=== PATIENT | female | born 1945 | race Caucasian/White ===

== ENCOUNTER → 2024-05-10 | Outpatient (CLI) | payer OTHER, SELFPAY ==
[2024-05-10 10:52] LABS: Basophils % (Auto) 1 % (0-2.5); Eosinophils # (Auto) 0.3 Thou/mm3 (0.0-0.5); Eosinophils % (Auto) 7 % (0-10); Hematocrit 38.5 % (36.0-46.0); Immature Granulocytes % (Auto) 0 % (0-0); Immature Granulocytes Auto 0.01 Thou/mm3 (0.00-0.00); Lymphocytes # (Auto) 1.2 Thou/mm3 (1.0-4.8); Lymphocytes % (Auto) 26 % (10-50); Mean Corpuscular HGB Conc 31.2 g/dl (31.0-37.0); Mean Corpuscular Hemoglobin 27.5 pg (25.0-35.0); Mean Corpuscular Volume 88 fL (80-100); Monocytes # (Auto) 0.3 Thou/mm3 (0.0-0.8); Monocytes % (Auto) 7 % (0-12); Neutrophils # (Auto) 2.8 Thou/mm3 (1.8-7.7); Neutrophils % (Auto) 59 % (37-80); Nucleated Red Blood Cell % 0 /100 WBC (0); Platelet Count 197 Thou/mm3 (140-440); RDW Standard Deviation 49.3 fL (36.4-46.3); Red Blood Count 4.37 Miln/mm3 (4.00-5.20); White Blood Count 4.7 Thou/mm3 (3.6-11.0)
[2024-05-10 11:21] LABS: Alanine Aminotransferase 12 U/L (10-49); Albumin, Serum 3.6 gm/dL (3.4-4.8); Albumin/Globulin Ratio 1.2 (1.2-2.2); Alkaline Phosphatase 145 U/L (46-116); Anion Gap 8 (7-16); Aspartate Amino Transferase 15 U/L (0-34); BUN/Creatinine Ratio 24 Ratio (12-20); Bilirubin,Total 0.3 mg/dL (0.3-1.2); Blood Urea Nitrogen 19 mg/dL (9-23); Calcium 9.6 mg/dL (8.3-10.6); Calcium (Corrected) 9.9 mg/dL (8.5-10.1); Carbon Dioxide 27.5 mMol/L (20.0-31.0); Chloride 111 mMol/L (98-107); Creatinine (Component) 0.8 mg/dL (0.6-1.3); Globulin 3.1 gm/dL (2.3-3.5); Glucose 94 mg/dL (74-106); Osmolality,Calculated 292 (275-295); Potassium 4.1 mMol/L (3.4-5.1); Sodium 146 mMol/L (136-145); Thyroid Stimulating Hormone 0.27 uIU/mL (0.55-4.78); Total Protein 6.7 gm/dL (5.7-8.2); eGFR > 60 See Note
[2024-05-10 11:38] LABS: Cardiac Risk Estimate 4.1 RATIO (3.7-5.6); Cholesterol 174 mg/dL (132-200); HDL Cholesterol 42 mg/dL (40-60); LDL Cholesterol,Calculated 118 mg/dL (0-130); Triglycerides 68 mg/dL (30-150)
== END | disposition home or self-care (01) ==
PROVIDERS: PCP Family Medicine; Referring Provider Family Medicine; Visit Provider Family Medicine
DX: I10 Essential (primary) hypertension (principal)
CPT/HCPCS: 36415; 80053; 80061; 81001; 84443; 85025

== ENCOUNTER → 2024-05-11 | Outpatient (CLI) | payer OTHER, SELFPAY ==
[2024-05-11 13:05] LABS: Collection Type, Urine Clean Catch
[2024-05-11 14:26] LABS: Bacteria,Urine 3+; Bilirubin,Urine Negative (Negative); Blood,Urine Trace (Negative); Calcium Oxalate Crystals,Urine 2+; Color,Urine Yellow (Lt Yel-Yel); Glucose, Urine Negative (Negative); Ketones,Urine Negative (Negative); Leukocyte Esterase,Urine Positive (Negative); Nitrite,Urine Negative (Negative); Protein,Urine Trace (Neg - Trace); RBC,Urine 20 /hpf (0-3); Specific Gravity,Urine 1.019 (1.001-1.035); Squamous Epithelial Cell,Urine 1 /hpf (0-5); Urobilinogen,Urine Negative mg/dL (0.0-1.0); WBC,Urine 856 /hpf (0-5)
[2024-05-11 14:35] LABS: Clarity,Urine Cloudy (Clear/Hazy); Culture Indicated,Urine Yes
== END | disposition home or self-care (01) ==
LOC: SLDO 12:40
PROVIDERS: PCP Family Medicine; Referring Provider Family Medicine; Visit Provider Family Medicine
DX: I10 Essential (primary) hypertension (principal)
CPT/HCPCS: 81001; 87077; 87086; 87186

== ENCOUNTER 2024-05-28 13:07 | Outpatient (RCR) | payer OTHER, SELFPAY ==
--- NOTE | 2024-05-28 13:46 | CTCFLWUP_ITS ---
[facility] [address] [place], [place] [address] FOLLOW-UP NOTE Date: 05/28/2024 MR#: [id number] Name: FABIO SCHUSTER : 1945 Dx: C34.31 Malignant neoplasm of lower lobe, right bronchus or lung Identification. Patient with invasive adenocarcinoma right lower lung diagnosed 02/18/2023. 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 Received 5000 cGy in 5 fractions via SBRT completed approximately a year ago 07/05/2023. Posttreatment PET 11-[address] 12/06/2023 suggested growing mass. Biopsy 12/29/2023 was negative for any malignancy recurrence. Patient reportedly spent several days in March at [facility] with respiratory symptoms. Was told that CT was clear of any suspicious malignancy. This is not available to me today. As I examine her today patient appears to be wheezy throughout chest and using bronchodilators. Also on Eliquis for her history of pulmonary embolism. I shall order CT scan chest abdomen with standard blood tests and see her back in 2 months. Electronically signed by: Ancelmo Demarco M.D. 05/28/2024 1:44 PM
== END 2024-06-22 23:59 | disposition home or self-care (01) ==
LOC: SCTC 13:07
PROVIDERS: PCP Family Medicine; Referring Provider Family Medicine; Visit Provider Radiology Therapeutic Radiology
DX: C34.31 Malignant neoplasm of lower lobe, right bronchus or lung (principal); R06.2 Wheezing; Z86.711 Personal history of pulmonary embolism; Z92.3 Personal history of irradiation; Z79.01 Long term (current) use of anticoagulants
CPT/HCPCS: 99213; G0463

== ENCOUNTER 2024-07-19 12:36 | Emergency (ER) | payer OTHER, SELFPAY ==
[2024-07-19 12:50] VITALS: BP 145/74; PULSE 91; RESP 18; TEMP 36.8; O2SAT 99; BMI 29.2
--- NOTE | 2024-07-19 12:56 | XR_ITS ---
Examination: AP chest single view Technique one AP upright portable chest single view Exam date and time: July 19, 2024 1313 hours Comparison 01/03/2024 INDICATIONS: Shortness of breath chest pain today, diagnosis lung cancer FINDINGS: Large right pleural effusion Normal heart size Left lung clear Significant osteopenia IMPRESSION: Large right pleural effusion
--- NOTE | 2024-07-19 12:57 | PD.EDRME ---
Rapid Medical Screening Exam RME Arrival date/time: 07/19/24 12:36 78-year-old female with cancer presents today stating that she was called to return to the ER for further evaluation for a pleural effusion on her CT scan Chief Complaint: General Adult/Misc Complain Vital signs: Vital Signs Temperature 98.2 F 07/19/24 12:50 Pulse Rate 91 07/19/24 12:50 Respiratory Rate 18 07/19/24 12:50 Blood Pressure 145/74 H 07/19/24 12:50 Pulse Oximetry (%) 99 07/19/24 12:50 Oxygen Delivery Method Room Air 07/19/24 12:50
[2024-07-19 13:44] LABS: Basophils % (Auto) 0 % (0-2.5); Eosinophils # (Auto) 0.2 Thou/mm3 (0.0-0.5); Eosinophils % (Auto) 2 % (0-10); Hematocrit 30.5 % (36.0-46.0); Hemoglobin 9.8 g/dL (12.0-16.0); Immature Granulocytes % (Auto) 0 % (0-0); Immature Granulocytes Auto 0.03 Thou/mm3 (0.00-0.00); Lymphocytes % (Auto) 14 % (10-50); Mean Corpuscular HGB Conc 32.1 g/dl (31.0-37.0); Mean Corpuscular Hemoglobin 26.9 pg (25.0-35.0); Mean Corpuscular Volume 84 fL (80-100); Monocytes # (Auto) 0.4 Thou/mm3 (0.0-0.8); Monocytes % (Auto) 5 % (0-12); Neutrophils # (Auto) 5.8 Thou/mm3 (1.8-7.7); Neutrophils % (Auto) 78 % (37-80); Nucleated Red Blood Cell % 0 /100 WBC (0); Platelet Count 286 Thou/mm3 (140-440); RDW Standard Deviation 38.9 fL (36.4-46.3); Red Blood Count 3.64 Miln/mm3 (4.00-5.20); White Blood Count 7.4 Thou/mm3 (3.6-11.0)
[2024-07-19 13:59] LABS: INR 1.1 (0.9-1.3); Partial Thromboplastin Time 29.5 Seconds (22.0-36.0); Prothrombin Time 12.4 Seconds (9.0-12.2)
[2024-07-19 14:16] LABS: Alanine Aminotransferase 12 U/L (10-49); Albumin, Serum 3.4 gm/dL (3.4-4.8); Alkaline Phosphatase 115 U/L (46-116); Anion Gap 10 (7-16); Aspartate Amino Transferase 11 U/L (0-34); BUN/Creatinine Ratio 20 Ratio (12-20); Bilirubin,Total 0.3 mg/dL (0.3-1.2); Blood Urea Nitrogen 10 mg/dL (9-23); Calcium 9.6 mg/dL (8.3-10.6); Calcium (Corrected) 10.1 mg/dL (8.5-10.1); Carbon Dioxide 21.8 mMol/L (20.0-31.0); Chloride 102 mMol/L (98-107); Creatinine (Component) 0.5 mg/dL (0.6-1.3); Estimated Creatinine Clearance 79.8 mL/min (>60); Globulin 3.5 gm/dL (2.3-3.5); Glucose 92 mg/dL (74-106); Osmolality,Calculated 267 (275-295); Potassium 3.8 mMol/L (3.4-5.1); Sodium 134 mMol/L (136-145); Total Protein 6.9 gm/dL (5.7-8.2); eGFR > 60 See Note
--- NOTE | 2024-07-19 17:47 | PD.EDADULT ---
ED General RME/HPI General Chief complaint: General Adult/Misc Complain Stated complaint: PLEURAL EFFUSION (SENT FROM DR. TORRES) Time Seen by Provider: 07/19/24 17:46 Arrival date/time: 07/19/24 12:36 RME / HPI RME / HPI narrative: 78-year-old female with cancer presents today stating that she was called to return to the ER for further evaluation for a pleural effusion on her CT scan. Patient currently is denying any shortness of breath denies any chest pain denies any other complaints except for generalized body weakness. Denies any fever also. She is currently not on chemotherapy. Related Data Home Medications ?Medication ?Instructions ?Recorded ?Confirmed lisinopril 20 mg tablet 20 mg PO BID 90 days ##0 04/01/14 12/29/23 amlodipine 5 mg tablet 5 mg PO QDAY 07/09/18 12/29/23 amitriptyline 25 mg tablet 25 mg PO HS 12/31/22 12/29/23 atorvastatin 20 mg tablet 20 mg PO HS 12/31/22 12/29/23 calcium carb-ergocalciferol (vit 1 tab PO QDAY 12/31/22 12/29/23 D2) 600 mg calcium-200 unit tablet methimazole 5 mg tablet 5 mg PO QDAY 12/31/22 12/29/23 propranolol 40 mg tablet 40 mg PO BID 12/31/22 12/29/23 alendronate 70 mg tablet 70 mg PO QWEEK 02/15/23 12/29/23 fluoxetine 40 mg capsule 40 mg PO QAM 02/15/23 12/29/23 hydrochlorothiazide 25 mg tablet 25 mg PO QDAY 02/15/23 12/29/23 Previous Rx's ?Medication ?Instructions ?Recorded apixaban 5 mg (74 tabs) tablets in 5 mg PO BID #74 tabs 02/19/23 a dose pack (Eliquis DVT-PE Treat 30D Start) Held on 12/29/23. Instructions: Resume on 12/31/23. HOLD Eliquis, resume Tuesday12/31/2023 donepezil 5 mg tablet 5 mg PO QDAY #30 tabs 02/19/23 Allergies Allergy/AdvReac Type Severity Reaction Status Date / Time codeine Allergy Severe Fainting Verified 07/19/24 12:40 hydrocodone Allergy Severe Itching Verified 07/19/24 12:40 melon Allergy Severe Hives Verified 07/19/24 12:40 meperidine Allergy Severe Fainting Verified 07/19/24 12:40 Penicillins Allergy Severe Rash Verified 07/19/24 12:40 Review of Systems Review of Systems Narrative Review of Systems: Review of system reviewed and within normal limits except mentioned in HPI ED Exam Narrative Physical exam: VITAL SIGNS: Reviewed. GENERAL APPEARANCE: Alert and interactive, follows commands, no acute distress, HEAD AND FACE: Non-traumatic. ENT: PERRL, pink conjunctivitis, eyelid no trauma, Mucous membrane moist. NECK: Supple, nontender, no nuchal rigidity. CHEST: No tenderness, no crepitus, no paradoxical movement, no retractions. LUNGS: Clear, well ventilated, symmetric, no rales, no wheezing, no ronchi, no stridor, good breath sounds bilaterally. HEART: Regular rate, regular rhythm, no murmur, no gallops. ABDOMEN: Soft, positive bowel sounds, nondistended, no guarding, nontender, no rebound, no masses, RECTAL: Deferred. GENITAL: Deferred. NEUROLOGICAL: Gross motor function intact sensory function intact, Appropriate for age. MUSCULOSKELETAL: low back nontender, full range of motion. EXTREMITIES: Nontender, full range of motion. SKIN: Color pink, dry, no rash, no lacerations, no abrasions, no contusions. LYMPHATICS: Deferred. Course Quality Measures none Orders Category Date Time Status XR chest 2V Stat Exams 07/19/24 12:56 Completed CBC Stat Lab 07/19/24 13:34 Completed Comprehensive Metabolic Panel Stat Lab 07/19/24 13:34 Completed Partial Thromboplastin Time Stat Lab 07/19/24 13:34 Completed Prothrombin Time with INR Stat Lab 07/19/24 13:34 Completed Vital Signs Vital signs: Vital Signs Temperature 98.2 F 07/19/24 12:50 Pulse Rate 91 07/19/24 12:50 Respiratory Rate 18 07/19/24 12:50 Blood Pressure 145/74 H 07/19/24 12:50 Pulse Oximetry (%) 99 07/19/24 12:50 Oxygen Delivery Method Room Air 07/19/24 12:50 [facility] Patient data External records reviewed:: None Clinical information provided by:: family Social determinants that could affect healthcare access:: none Patient has the following chronic illnesses:: History of cancer currently not on chemo How is presenting disease/condition affected by chronic disease/condition?: exacerbated by Evaluation data The following diagnostics were reviewed and interpreted by me:: lab results and radiology exam(s) Lab and/or radiology exams considered but not ordered:: None Interpretation Summary: See results in MDM Medications Medications considered but not ordered:: None Medication administrations:: None none Consultations Consultation(s) initiated? (list below): No Diagnosis Differential Diagnosis ED Complaint MDM: Pleural effusion, history of cancer Most likely diagnosis given after review of the tests above:: Pleural effusion needing outpatient thoracentesis Admission Indicated Admission indicated?: not indicated Explain why admission is indicated or not indicated:: Stable Admission Request Was there a request for admission?: No Disposition Plan Disposition Plan: Discharge Discharge Attestation Discharge Attestation: The patient and all family members were given an opportunity to ask questions and understood the discharge instructions. Discharge instructions specifically effects, indications for sooner follow up or return to the emergency department, and the expected course of current diagnosis. Patient condition: Stable Medical Decision Making MDM Narrative MDM Narrative: 78-year-old female with cancer presents today stating that she was called to return to the ER for further evaluation for a pleural effusion on her CT scan. Patient currently is denying any shortness of breath denies any chest pain denies any other complaints except for generalized body weakness. Denies any fever also. She is currently not on chemotherapy. Currently patient is not having any symptoms. Patient was advised to return to emergency room tomorrow morning for ultrasound-guided thoracentesis.. We do have to do repeat laboratory workup tomorrow patient just needs to be referred to the ultrasound/IR department for thoracentesis regarding large pleural effusion. Patient appears nontoxic and hemodynamically stable. Her oxygen saturation was noted to be 99% on room air Differential Diagnosis Differential Diagnosis: Pleural effusion, history of cancer Lab Data 07/19/24 13:34 07/19/24 13:34 Labs: Lab Results 07/19/24 Range/Units 13:34 WBC 7.4 (3.6-11.0) Thou/mm3 RBC 3.64 L (4.00-5.20) Miln/mm3 Hgb 9.8 L (12.0-16.0) g/dL Hct 30.5 L (36.0-46.0) % MCV 84 (80-100) fL MCH 26.9 (25.0-35.0) pg MCHC 32.1 (31.0-37.0) g/dl RDW Std Deviation 38.9 (36.4-46.3) fL Plt Count 286 (140-440) Thou/mm3 Neut % (Auto) 78 (37-80) % Lymph % (Auto) 14 (10-50) % [place] % (Auto) 5 (0-12) % Eos % (Auto) 2 (0-10) % Baso % (Auto) 0 (0-2.5) % Neut # (Auto) 5.8 (1.8-7.7) Thou/mm3 Lymph # (Auto) 1.0 (1.0-4.8) Thou/mm3 [place] # (Auto) 0.4 (0.0-0.8) Thou/mm3 Eos # (Auto) 0.2 (0.0-0.5) Thou/mm3 Baso # (Auto) 0.0 (0.0-0.2) Thou/mm3 Immature Gran # (Auto) 0.03 H (0.00-0.00) Thou/mm3 Absolute Nucleated RBC 0.00 (0.00-0.00) Thou/mm3 Immature Gran % 0 (0-0) % Nucleated RBC % 0 (0) /100 WBC PT 12.4 H (9.0-12.2) Seconds INR 1.1 (0.9-1.3) APTT 29.5 (22.0-36.0) Seconds Sodium 134 L (136-145) mMol/L Potassium 3.8 (3.4-5.1) mMol/L Chloride 102 (98-107) mMol/L Carbon Dioxide 21.8 (20.0-31.0) mMol/L Anion Gap 10 (7-16) BUN 10 (9-23) mg/dL Creatinine 0.5 L (0.6-1.3) mg/dL Estim Creat Clear Calc 79.8 (>60) mL/min eGFR > 60 (60 - ) See Note BUN/Creatinine Ratio 20 (12-20) Ratio Glucose 92 (74-106) mg/dL Calculated Osmolality 267 L (275-295) Calcium 9.6 (8.3-10.6) mg/dL Corrected Calcium 10.1 (8.5-10.1) mg/dL Total Bilirubin 0.3 (0.3-1.2) mg/dL AST 11 (0-34) U/L ALT 12 (10-49) U/L Alkaline Phosphatase 115 (46-116) U/L Total Protein 6.9 (5.7-8.2) gm/dL Albumin 3.4 (3.4-4.8) gm/dL Globulin 3.5 (2.3-3.5) gm/dL Albumin/Globulin Ratio 1.0 L (1.2-2.2) Discharge Plan Plan Patient Disposition: HOME (Self Care) Disposition Comment: Stable Prescriptions/Referrals Prescriptions/Med Rec: No Action lisinopril 20 MG tablet 20 mg PO BID 90 Days Qty: 0 amlodipine 5 mg Tablet 5 mg PO QDAY fluoxetine 40 mg capsule 40 mg PO QAM alendronate 70 mg tablet 70 mg PO QWEEK hydrochlorothiazide 25 mg Tablet 25 mg PO QDAY Eliquis DVT-PE Treat 30D Start 5 mg (74 tabs) tablets,dose pack 5 mg PO BID Qty: 74 0RF donepezil 5 mg tablet 5 mg PO QDAY Qty: 30 4RF atorvastatin 20 mg tablet 20 mg PO HS propranolol 40 mg tablet 40 mg PO BID Patient Comments: TAKE 1 TABLET BY MOUTH TWICE DAILY amitriptyline 25 mg tablet 25 mg PO HS methimazole 5 mg tablet 5 mg PO QDAY calcium carbonate-vitamin D2 600 mg calcium- 200 unit Tablet 1 tab PO QDAY Referrals: Janki Ortiz MD [Primary Care Provider] - In 1 week Problem List Clinical Impression: Large pleural effusion Patient/Caregiver Discharge Instructions Discharge Activity: activity as tolerated Education Materials: Pleural Effusion Additional Instructions: Thank you for the opportunity for serving you today. You are stable for discharged . You are advised to: Follow-up with your PCP in a few days Return to ED for worsening of symptoms Return to emergency room tomorrow morning, for ultrasound guided thoracentesis, you do not need rpt laboratory workup you can use the workup that was done on 07/19/2024 Print Language: Azeri Stand Alone Forms: Maggie Award Info., Patient Portal Info Letter
== END 2024-07-19 18:01 | disposition home or self-care (01) ==
PROVIDERS: Nurse Practitioner Primary Care; Emergency Provider Emergency Medicine; PCP Family Medicine
DX: J90 Pleural effusion, not elsewhere classified (principal)
CPT/HCPCS: 36415; 71046; 80053; 85025; 85610; 85730; 99283

== ENCOUNTER → 2024-07-19 | Outpatient (CLI) | payer OTHER, SELFPAY ==
--- NOTE | 2024-07-19 10:43 | XR_ITS ---
Examination: CT chest with intravenous contrast CT abdomen with intravenous contrast 2-D coronal and sagittal reconstructions Time of exam: 11/11/2024 1156 hours Comparison December 06, 2023 INDICATIONS: Diagnosis lung carcinoma 2 years ago, right lower lobe pulmonary mass 6.8 x 6.7 x [address] chest December 06, 2023 CTDI: vol (mGy) : 8.73 DLP: (mGycm): 434 Technique: Multiple axial images of the chest, abdomen and pelvis with intravenous contrast, 3.0 mm slice thickness. Images obtained post intravenous injection Isovue 370 60 cc. 2-D sagittal and coronal reconstructions. Low dose protocols were performed. One or more of the following dose reduction techniques were used; automated exposure control, adjustment of the mA and/or KV according to patient size, use of iterative reconstruction technique. Findings: Masslike area with atelectasis and possible pneumonia in the right lower lobe again noted, on this study 8.2 x 3.7 cm compared to 6.8 x 4.2 cm on December 06, 2023 Large right pleural effusion Left lung clear Multiple liver cysts No gallstones Partial visualization large left renal cyst Stable 10 mm right adrenal nodule IMPRESSION: Masslike area with atelectasis and possible pneumonia in the right lower lobe again noted, measuring 8.2 x 3.7 cm compared to 6.8 x 4.[address] chest December 06, 2023 Interval large right pleural effusion, amenable to ultrasound-guided thoracentesis
== END | disposition home or self-care (01) ==
LOC: CCTX 10:38
PROVIDERS: Referring Provider Radiology Therapeutic Radiology; Visit Provider Radiology Therapeutic Radiology
DX: J98.11 Atelectasis (principal); J90 Pleural effusion, not elsewhere classified; C34.31 Malignant neoplasm of lower lobe, right bronchus or lung
CPT/HCPCS: 71260; 74160; A4649; Q9967

== ENCOUNTER 2024-07-20 07:58 | Emergency (ER) | payer OTHER, SELFPAY ==
--- NOTE | 2024-07-20 | XR_ITS ---
Examination: AP chest single view TECHNIQUE: Upright AP chest single view Exam date and time: July 20, 2024 1048 hours Comparison July 12, 2024 0928 hours INDICATIONS: Post thoracentesis FINDINGS: Air-fluid level which may be in loculated right pleural fluid Normal heart size Left lung clear IMPRESSION: Consider repeat CT chest post intravenous contrast follow-up to compare with the July 19, 2024 exam
[2024-07-20 08:10] VITALS: BP 119/75; PULSE 95; RESP 18; TEMP 36.6; O2SAT 99; BMI 28.3
--- NOTE | 2024-07-20 08:28 | XR_ITS ---
Examination: Ultrasound-guided right thoracentesis Ultrasound right hemithorax Ultrasound left hemithorax Exam date and time: July 12, 2024 1011 hours INDICATIONS: Shortness of breath this week, chest x-ray today large right pleural effusion TECHNIQUE AND FINDINGS: Sonographic images right and left hemithoraces Moderate right pleural effusion, no left pleural effusion Informed consent provided. Timeout performed. Skin prepped over the right hemithorax and sterile drape applied, hand hygiene ultrasound sterile technique 1% lidocaine administered for local anesthesia Utilizing fluoroscopic guidance 5 [place] catheter placed in the right pleural space 225 cc pleural fluid removed Estimated blood loss 0 cc IMPRESSION: Successful ultrasound-guided right thoracentesis
--- NOTE | 2024-07-20 08:28 | XR_ITS ---
Examination: AP lateral chest 2 views TECHNIQUE: Upright AP lateral chest 2 views portable Exam date and time: July 12, 2024 0927 hours Comparison 01/19/2025 INDICATIONS: Shortness of breath today FINDINGS: Again noted large right pleural effusion Normal heart size Ectatic thoracic aorta IMPRESSION: Again noted large right pleural effusion
--- NOTE | 2024-07-20 08:29 | PD.EDRME ---
Rapid Medical Screening Exam RME Arrival date/time: 07/20/24 07:58 78-year-old female evaluated yesterday was diagnosed with a large pleural effusion here for a ultrasound-guided thoracentesis I have greeted and performed a focused initial assessment of this patient. Initial appropriate labs ordered at this time. A comprehensive ED assessment and evaluation of the patient and analysis of all test and completion of medical decision making process will be conducted by additional ED provider. Chief Complaint: Shortness of Breath/Dyspnea Time Seen by Provider: 07/20/24 08:15 Vital signs: Vital Signs Temperature 97.9 F 07/20/24 08:10 Pulse Rate 95 07/20/24 08:10 Respiratory Rate 18 07/20/24 08:10 Blood Pressure 119/75 07/20/24 08:10 Pulse Oximetry (%) 99 07/20/24 08:10 Oxygen Delivery Method Room Air 07/20/24 08:10
--- NOTE | 2024-07-20 11:28 | EDNOTE_ITS ---
<Statement entered by Dayami Aguila MD - 07/20/24 16:03> As co-signing physician, I was present and available for consult prn. I concur with the plan and care as documented by the midlevel provider. ED SOB =RME/HPI General Chief Complaint: Shortness of Breath/Dyspnea Stated Complaint: ER YESTERDAY; RETURN FOR LEFT THORACENTISIS Time Seen by Provider: 07/20/24 08:15 Arrival date/time: 07/20/24 07:58 RME / HPI RME / HPI Narrative: 78-year-old female patient with significant history of neoplasm of the lung, came in for evaluation regarding request for ultrasound-guided thoracentesis. Patient was seen here yesterday, after was noted to have large right-sided pleural effusion while doing CT scan of the chest and abdomen. Patient is currently not having any symptoms. No shortness of breath no chest pain no fever no abdominal pain no coughing. Patient was advised to come here today for the procedure. Denies also any fever or chills. Related Data Home Medications ?Medication ?Instructions ?Recorded ?Confirmed lisinopril 20 mg tablet 20 mg PO BID 90 days ##0 12/0612/29/23 amlodipine 5 mg tablet 5 mg PO QDAY 07/09/18 amitriptyline 25 mg tablet 25 mg PO HS 12/31/22 atorvastatin 20 mg tablet 20 mg PO HS 12/31/22 4 calcium carb-ergocalciferol (vit 1 tab PO QDAY 3 12/29/23 D2) 600 mg calcium-200 unit tablet methimazole 5 mg tablet 5 mg PO QDAY 12/31/22 propranolol 40 mg tablet 40 mg PO BID 12/31/22 alendronate 70 mg tablet 70 mg PO QWEEK 02/15/2309/15 fluoxetine 40 mg capsule 40 mg PO QAM 02/15/23 hydrochlorothiazide 25 mg tablet 25 mg PO QDAY 3 12/29/23 Previous Rx's ?Medication ?Instructions ?Recorded apixaban 5 mg (74 tabs) tablets in 5 mg PO BID #74 tab s 02/19/23 a dose pack (Eliquis DVT-PE Treat 30D Start) Held on 12/29/23. Instructions: Resume on 12/31/23. HOLD Eliquis, resume Tuesday12/31/2023 donepezil 5 mg tablet 5 mg PO QDAY #30 tabs Allergies Allergy/AdvReac Type Severity Reaction Status Date / Time codeine Allergy Severe Fainting Verified 07/20/24 08:04 hydrocodone Allergy Severe Itching Verified 07/20/24 08:04 melon Allergy Severe Hives Verified 07/20/24 08:04 meperidine Allergy Severe Fainting Verified 07/20/24 08:04 Penicillins Allergy Severe Rash Verified 07/20/24 08:04 Review of Systems Review of Systems Narrative Review of Systems: Review of system reviewed and within normal limits except mentioned in HPI ED Exam Narrative Physical exam: VITAL SIGNS: Reviewed. GENERAL APPEARANCE: Alert and interactive, follows commands, no acute distress, HEAD AND FACE: Non-traumatic. ENT: PERRL, pale conjunctiva, eyelid no trauma, Mucous membrane moist. NECK: Supple, nontender, no nuchal rigidity. CHEST: No tenderness, no crepitus, no paradoxical movement, no retractions. LUNGS:Symmetric, no rales, no wheezing, no ronchi, no stridor, decreased breath sounds on right lung base HEART: Regular rate, regular rhythm, no murmur, no gallops. ABDOMEN: Soft, positive bowel sounds, nondistended, no guarding, nontender, no rebound, no masses, RECTAL: Deferred. GENITAL: Deferred. NEUROLOGICAL: Gross motor function intact sensory function intact, Appropriate for age. MUSCULOSKELETAL: low back nontender, full range of motion. EXTREMITIES: Nontender, full range of motion. SKIN: Color pink, dry, no rash, no lacerations, no abrasions, no contusions. LYMPHATICS: Deferred. Course Quality Measures none Orders Category Date Time Status US thoracentesis Stat Exams 07/20/24 08:28 Completed XR chest 1V post procedure Stat Exams 07/20/24 Completed XR chest 2V Stat Exams 07/20/24 08:28 Completed Lidocaine 1% Pf 30 ml [Xylocaine 1% Pf 30 ml] Med 07/20/24 08:40 Discontinued 30 ml .ROUTE .STK-MED ONE Vital Signs Vital signs: Vital Signs Temperature 97.9 F 07/20/24 08:10 Pulse Rate 95 07/20/24 08:10 Respiratory Rate 18 07/20/24 08:10 Blood Pressure 119/75 07/20/24 08:10 Pulse Oximetry (%) 99 07/20/24 08:10 Oxygen Delivery Method Room Air 07/20/24 08:10 Shortness of Breath / Dyspnea MDM Narrative MDM Narrative:: 78-year-old female patient with significant history of malignant neoplasm of the lung, came in for evaluation regarding request for ultrasound-guided thoracentesis. Patient was seen here yesterday, after was noted to have large right-sided pleural effusion while doing CT scan of the chest and abdomen. Patient is currently not having any symptoms. No shortness of breath no chest pain no fever no abdominal pain no coughing. Patient was advised to come here today for the procedure. Denies also any fever or chills. Ultrasound-guided thoracentesis was done by IR, no complication noted. There were able to remove 225 cc of fluids. Patient was advised to closely follow-up with her oncologist. Patient was noted to be satting 99% on room air Patient data External records reviewed:: None Clinical information provided by:: patient and family Social determinants that could affect healthcare access:: none Patient has the following chronic illnesses:: History of malignant neoplasm of the lung How is presenting disease/condition affected by chronic disease/condition?: exacerbated by Evaluation data The following diagnostics were reviewed and interpreted by me:: radiology exam(s) Lab and/or radiology exams considered but not ordered:: None Interpretation Summary: Chest x-ray that was done today showed large pleural effusion Medications / Prescriptions Medications or Prescriptions considered but not ordered:: None Medication administrations:: Medication Administration History Discontinued Medications Lidocaine HCl (Lidocaine Inj Pf 1% 30 Ml Vial) Confirm Administered Dose 30 ml .ROUTE .[employer] ONE Stop: 07/20/24 08:41 None Consultations Consultation(s) initiated? (list below): No Diagnosis Shortness of Breath Differential Diagnosis: acute exacerbation of chronic obstructive airways disease and community acquired pneumonia Most likely diagnosis given after review of the tests above:: Large pleural effusion, history of malignant neoplasm of the lung Admission Indicated Admission indicated?: not indicated Explain why admission is indicated or not indicated:: Stable Admission Request Was there a request for admission?: No Disposition Plan Disposition Plan: Discharge Discharge Attestation Discharge Attestation: The patient and all family members were given an opportunity to ask questions and understood the discharge instructions. Discharge instructions specifically effects, indications for sooner follow up or return to the emergency department, and the expected course of current diagnosis. Patient condition: Stable Discharge Plan Plan Patient Disposition: HOME (Self Care) Disposition Comment: Stable Prescriptions/Referrals Prescriptions/Med Rec: No Action lisinopril 20 MG tablet 20 mg PO BID 90 Days Qty: 0 amlodipine 5 mg Tablet 5 mg PO QDAY fluoxetine 40 mg capsule 40 mg PO QAM alendronate 70 mg tablet 70 mg PO QWEEK hydrochlorothiazide 25 mg Tablet 25 mg PO QDAY Eliquis DVT-PE Treat 30D Start 5 mg (74 tabs) tablets,dose pack 5 mg PO BID Qty: 74 0RF donepezil 5 mg tablet 5 mg PO QDAY Qty: 30 4RF atorvastatin 20 mg tablet 20 mg PO HS propranolol 40 mg tablet 40 mg PO BID Patient Comments: TAKE 1 TABLET BY MOUTH TWICE DAILY amitriptyline 25 mg tablet 25 mg PO HS methimazole 5 mg tablet 5 mg PO QDAY calcium carbonate-vitamin D2 600 mg calcium- 200 unit Tablet 1 tab PO QDAY Referrals: Janki Tilley MD [Primary Care Provider] - In 1 week Problem List Clinical Impression: Pleural effusion, S/P thoracentesis, History of lung cancer Patient/Caregiver Discharge Instructions Discharge Activity: activity as tolerated Education Materials: Thoracentesis Dc Additional Instructions: Thank you for the opportunity for serving you today. You are stable for discharged . You are advised to: Follow-up with your PCP in 1 to 2 days Return to ED for worsening of symptoms Print Language: [place] Stand Alone Forms: Maggie Award Info., Patient Portal Info Letter PA/[employer] Supervising Physician PA/[employer]PER[employer] Supervising Physician: Dr Aguila
== END 2024-07-20 11:38 | disposition home or self-care (01) ==
PROVIDERS: Emergency Provider Emergency Medicine; PCP Family Medicine
DX: J90 Pleural effusion, not elsewhere classified (principal); Z85.118 Personal history of other malignant neoplasm of bronchus and lung
CPT/HCPCS: 32555; 71046; 99284; C1729

== ENCOUNTER 2024-07-30 14:05 | Outpatient (RCR) | payer OTHER, SELFPAY ==
--- NOTE | 2024-07-30 15:34 | CTCFLWUP_ITS ---
[facility] [address] [place], [place] [address] FOLLOW-UP NOTE Date: 07/30/2024 MR#: [id number] Name: FABIO SCHUSTER : 1945 Dx: C34.31 Malignant neoplasm of lower lobe, right bronchus or lung Identification. Patient with invasive adenocarcinoma right lower lung diagnosed 02/18/2023. Underwent SBRT for stage II aT2 N0 right lower lobe completed 07/05/2023. History of large pulmonary artery emboli and various quantities felt to not be candidate for regular surgery. So medical oncologist at the time who agreed. Imaging studies suggested that patient had a growing mass but biopsy 12/29/2023 was negative for recurrence. Was admitted at [facility] last month where 1 L of fluid removed from the right lower lobe and possible T8 T10 mets were noted. CT 07/19/2024 which showed reaccumulation of large right pleural effusion and also masslike atelectasis and possible pneumonia in the right lower lobe. Thoracentesis 07/20/24 removed 225 cc od pleural fluid. Pt likely has recurrent and active cancer in RLL with possible bone mets. Not interested in checking on cancer status or getting chemo if found to have recurred. Getting ready to move to [place] with daughter. Will send records after pt establishes self there. Electronically signed by: Ancelmo Demarco M.D. 07/30/2024 3:31 PM
== END 2024-08-22 23:59 | disposition home or self-care (01) ==
LOC: SCTC 14:05
PROVIDERS: PCP Family Medicine; Referring Provider Family Medicine; Visit Provider Radiology Therapeutic Radiology
DX: C34.31 Malignant neoplasm of lower lobe, right bronchus or lung (principal); J90 Pleural effusion, not elsewhere classified; Z92.3 Personal history of irradiation
CPT/HCPCS: 99212; G0463